=== PATIENT | female | born 1980 | race African-American/Black ===

== ENCOUNTER 2018-01-29 05:10 | Day surgery (SDC) | payer BC, OTHER ==
[2018-01-27 13:42] VITALS: BMI 48.7
[2018-01-29] MEDS ORDERED: ONDANSETRON 4 MG/2 ML VIAL IVPUSH PRN (12:07)
[2018-01-29] MEDS ORDERED: LACTATED RINGERS SOLUTION 1,000 ML IV SCH (12:15)
[2018-01-29] MEDS ORDERED: PROPOFOL 20 ML ONE ×2 (12:22→12:24)
[2018-01-29] MEDS ORDERED: MIDAZOLAM HCL 2 MG/2 ML SINGLE DOSE VIAL ONE (12:22)
[2018-01-29] MEDS ORDERED: SODIUM BICARBONATE 8.4% - 50 ML ONE (12:25)
[2018-01-29] MEDS ORDERED: LIDOCAINE HCL 1%, 10 MG/ML (20ML VIAL) ONE (12:27)
[2018-01-29] MEDS ORDERED: HEPARIN NA (PORCINE) 5,000 UNITS/ML 1ML VIAL ONE (12:27)
[2018-01-29] MEDS ORDERED: DEXMEDETOMIDINE HCL 200 MCG/2 ML ML IVPB ONE (12:37)
[2018-01-29] MEDS ORDERED: ACETAMINOPHEN 1000 MG/100 ML VIAL (NON FORMULARY) IVPB ONE (12:47)
[2018-01-29] MEDS ORDERED: ceFAZolin SODIUM 1 GM VIAL IVPB ONE (12:50)
[2018-01-29] MEDS ORDERED: DEXTROSE 5%-0.45% SALINE 1,000 ML IV SCH (13:00)
[2018-01-29] MEDS ORDERED: IBUPROFEN 800 MG/8 ML IJ IVPB SCH (13:00)
[2018-01-29 14:39] VITALS: TEMP 98
[2018-01-29 15:26] VITALS: BP 132/78; PULSE 87
--- NOTE | 2018-03-13 14:28 | OP ---
DATE OF OPERATION: 01/29/2018 PREOPERATIVE DIAGNOSIS: Interstitial cystitis. PREOPERATIVE DIAGNOSIS: Interstitial cystitis. PROCEDURE: Cystoscopy, hydrodistention, bladder instillation of medication. SURGEON: Manan Gomez MD ANESTHESIA: General. PREOPERATIVE INDICATIONS: The patient has interstitial cystitis with urinary frequency, urgency, and pain. She comes to the OR for cystoscopy, hydrodistention, and bladder instillation. DESCRIPTION OF PROCEDURE: The patient was brought to the OR, placed on the table in the supine position, given general anesthesia and IV antibiotics, and placed in the modified lithotomy position. The groin was prepped and draped sterilely. Cystoscopy was performed. The bladder was visualized. There was hyperemia throughout consistent with interstitial cystitis. No tumors or stones were seen. Both UOs were visualized with clear efflux. The urethra also was normal. The bladder was filled under pressure monitoring to 15 mmHg and held for 10 minutes. It was then emptied, and there were glomerulations throughout consistent with interstitial cystitis. A 50-mL solution was put in including 40,000 units of heparin, 1% lidocaine, bicarbonate, and saline. The patient was then woken up. MANAN GOMEZ M.D. [id number]
== END 2018-01-29 15:32 | disposition home or self-care (01) ==
LOC: JASU-SURG 05:10
PROVIDERS: ATTEND Urology
PROC: 3E0K8GC Introduction of Other Therapeutic Substance into Genitourinary Tract, Via Natural or Artificial Opening Endoscopic (ICD-10-PCS; 2018-01-29)
PROC: 0T7B8ZZ Dilation of Bladder, Via Natural or Artificial Opening Endoscopic (ICD-10-PCS; principal; 2018-01-29 12:00)
DX: N30.10 Interstitial cystitis (chronic) without hematuria (principal); R35.0 Frequency of micturition; R39.15 Urgency of urination
CPT/HCPCS: 84703; 94760; J0131; J1644